=== PATIENT | female | born 1980 | race Caucasian/White ===

== ENCOUNTER 2019-03-15 10:34 | Emergency (ER) | payer BC, OTHER ==
[~2019-03-15] VITALS: Ht 160 cm; Wt 86.5 kg
[2019-03-15 12:29] VITALS: BP 124/84
== END 2019-03-15 12:39 | disposition home or self-care (01) ==
LOC: ED 11:11
DX: R11.2 Nausea with vomiting, unspecified (principal); E86.0 Dehydration
CPT/HCPCS: 36415; 80048; 82040; 96374; 96375; 99283; J1885; J2405; J7030